=== PATIENT | female | born 1985 | race Caucasian/White ===

== ENCOUNTER 2018-09-07 11:01 | Emergency (ER) | payer MEDICAID ==
[2018-09-07 11:24] VITALS: BP 106/67
--- NOTE | 2018-09-07 11:29 | EDM.PDOC ---
ED HPI GENERAL MEDICAL PROBLEM - General Chief Complaint: ENT Problem Stated Complaint: SORE THROAT Time Seen by Provider: 09/07/18 11:18 Source of Information: Reports: Patient History Limitations: Reports: No Limitations - History of Present Illness INITIAL COMMENTS - FREE TEXT/NARRATIVE: 33 yo female presents with 2 day hx of sore throat and fatigue. deneis cough or nasal congestion. 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 Neurological History: Reports: Concussion - Infectious Disease History Infectious Disease History: Reports: Chicken Pox - Past Surgical History GI Surgical History: Reports: Appendectomy Social & Family History - Family History Family Medical History: Noncontributory - Tobacco Use Smoking Status *Q: Never Smoker - Caffeine Use Caffeine Use: Reports: None - Recreational Drug Use Recreational Drug Use: No ED ROS ENT - Review of Systems Review Of Systems: See Below Constitutional: Reports: Fever, Chills, Malaise, Fatigue HEENT: Reports: Throat Pain. Denies: Rhinitis, Sinus Problem Respiratory: Denies: Shortness of Breath, Wheezing Cardiovascular: Denies: Chest Pain GI/Abdominal: Denies: Abdominal Pain, Constipation, Diarrhea ED EXAM, ENT - Physical Exam Exam: See Below Exam Limited By: No Limitations General Appearance: Alert, WD/WN, No Apparent Distress Ears: Normal External Exam, Normal Canal, Hearing Grossly Normal, Normal TMs Nose: Normal Inspection, Normal Mucousa, No Blood Mouth/Throat: Normal Gums, Normal Lips, Normal Teeth, Pharyngeal Erythema, Throat Pain, Throat Swelling Head: Atraumatic, Normocephalic Neck: Normal Inspection, Supple, Non-Tender, Full Range of Motion Respiratory/Chest: No Respiratory Distress, Lungs Clear, Normal Breath Sounds, No Accessory Muscle Use. No: Crackles, Rhonchi, Wheezing Cardiovascular: Regular Rate, Rhythm, No Murmur GI/Abdominal: Normal Bowel Sounds, Soft, Non-Tender Skin: Warm, Dry, Intact Course - Vital Signs Last Recorded V/S: Last Vital Signs Temp 37.5 C 09/07/18 11:10 Pulse 75 09/07/18 11:10 Resp 20 09/07/18 11:10 BP 106/67 09/07/18 11:10 Pulse Ox 99 09/07/18 11:10 Departure - Departure Time of Disposition: 11:51 Disposition: Home, Self-Care 01 Condition: Good Clinical Impression: Pharyngitis, streptococcal - Discharge Information *PRESCRIPTION DRUG MONITORING PROGRAM REVIEWED*: Not Applicable *COPY OF PRESCRIPTION DRUG MONITORING REPORT IN PATIENT GIOVANNA: Not Applicable Instructions: Strep Throat Referrals: PCP,None [Primary Care Provider] - Forms: ED Department Discharge Additional Instructions: Penicillin 500mg twice daily for 10 days Tylenol and/or ibuprofen for pain and fever gargle with salt water for pain control REST
== END 2018-09-07 12:07 | disposition home or self-care (01) ==
LOC: JP.ED 11:01
DX: J02.0 Streptococcal pharyngitis (principal)
CPT/HCPCS: 87430; 99283

== ENCOUNTER 2019-04-12 09:06 | Emergency (ER) | payer BC, MEDICAID ==
[2019-04-12 09:20] VITALS: BP 114/63; PULSE 72
--- NOTE | 2019-04-12 10:38 | EDM.PDOC ---
ED HPI GENERAL MEDICAL PROBLEM - General Chief Complaint: ENT Problem Stated Complaint: POSSIBLE STREP Time Seen by Provider: 04/12/19 09:20 Source of Information: Reports: Patient History Limitations: Reports: No Limitations - History of Present Illness INITIAL COMMENTS - FREE TEXT/NARRATIVE: pt has a sore throat and she has been running a fever over the weekend. She has a child who has strept. She does not have a sore throat. 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 Neurological History: Reports: Concussion - Infectious Disease History Infectious Disease History: Reports: Chicken Pox - Past Surgical History GI Surgical History: Reports: Appendectomy Social & Family History - Family History Family Medical History: Noncontributory - Tobacco Use Smoking Status *Q: Never Smoker - Caffeine Use Caffeine Use: Reports: Coffee - Recreational Drug Use Recreational Drug Use: No ED ROS ENT - Review of Systems Review Of Systems: See Below Constitutional: Reports: Fever, Malaise HEENT: Reports: Throat Pain Respiratory: Reports: No Symptoms Cardiovascular: Reports: No Symptoms Endocrine: Reports: No Symptoms GI/Abdominal: Reports: No Symptoms : Reports: No Symptoms Musculoskeletal: Reports: No Symptoms Skin: Reports: No Symptoms Neurological: Reports: No Symptoms Psychiatric: Reports: No Symptoms ED EXAM, ENT - Physical Exam Exam: See Below Text/Narrative:: pt has been running up to 102 over the weekend. Exam Limited By: No Limitations General Appearance: Alert, No Apparent Distress, Other (pt does not have a sore throat but she has been exposed to strept. ) Ears: Normal TMs Nose: Normal Inspection Mouth/Throat: Normal Inspection Head: Atraumatic Neck: Normal Inspection Respiratory/Chest: No Respiratory Distress Cardiovascular: Regular Rate, Rhythm GI/Abdominal: Soft, Non-Tender (Female) Exam: Deferred Rectal (Female) Exam: Deferred Back: Normal Inspection Extremities: No Pedal Edema Neurological: Alert, Oriented, Normal Cognition Course - Vital Signs Last Recorded V/S: Last Vital Signs Temp 36.1 C 04/12/19 09:20 Pulse 72 04/12/19 09:20 Resp 16 04/12/19 09:20 BP 114/63 04/12/19 09:20 Pulse Ox 98 04/12/19 09:20 - Re-Assessments/Exams Free Text/Narrative Re-Assessment/Exam: 04/17/19 12:54 pt had a neg strept and a neg influ. Departure - Departure Time of Disposition: 10:37 Disposition: Home, Self-Care 01 Condition: Fair Clinical Impression: Viral illness - Discharge Information Referrals: PCP,None [Primary Care Provider] - Forms: ED Department Discharge Care Plan Goals: push fluids, tylenol and motrin for fever and body aches. Sepsis Event Note - Evaluation Sepsis Screening Result: No Definite Risk - Focused Exam Date Exam was Performed: 04/17/19 Time Exam was Performed: 12:52
== END 2019-04-12 10:00 | disposition home or self-care (01) ==
LOC: JP.ED 09:06
DX: B34.9 Viral infection, unspecified (principal)
CPT/HCPCS: 87081; 87804; 87804-59; 87880-QW; 99283